=== PATIENT | male | born 1985 | race Caucasian/White ===

== ENCOUNTER → 2016-12-22 | Outpatient (CLI) | payer OTHER ==
--- NOTE | 2016-12-22 16:11 | REP ---
MR BRAIN WITHOUT AND WITH CONTRAST: HISTORY: Bilateral hearing loss. CONTRAST: ProHance 13 mL. There are no areas of abnormal signal intensity in the brain. There is no intraparenchymal hemorrhage, infarct, mass, or midline shift. There is no abnormal enhancement. The ventricular system is normal in appearance. There is no extracerebral collection. There is no cerebellopontine angle mass. The inner ear structures are normal in appearance. The mastoid air cells are clear. Minimal mucosal thickening is present in the left maxillary sinus. IMPRESSION: There is no intracranial lesion. Signed by Juan José Petit MD 12/22/2016 04:12 P
== END ==
LOC: M RAD 14:30
DX: H90.5 Unspecified sensorineural hearing loss (principal)